=== PATIENT | male | born 1975 | race Caucasian/White ===

== ENCOUNTER → 2020-10-01 01:52 | Outpatient (CLI) | payer BC, SELFPAY ==
[2020-10-01 20:12] LABS: SARS-CoV-2 RNA PCR Negative
== END ==
PROVIDERS: PCP Family Medicine; Visit Provider Internal Medicine Cardiovascular Disease
DX: Z01.812 Encounter for preprocedural laboratory examination (principal); Z20.822 Contact with and (suspected) exposure to COVID-19
CPT/HCPCS: C9803; U0003; U0005

== ENCOUNTER 2020-10-04 01:30 | Day surgery (SDC) | payer BC, SELFPAY ==
[2020-10-03 16:21] VITALS: BMI 55.9
[2020-10-04] VITALS (14 sets, daily range): BP systolic 112–170; BP diastolic 49–82; PULSE 56–68; RESP 12–19; TEMP 36.3–37.1; O2SAT 97–100; BMI 56.9
--- NOTE | 2020-10-04 08:18 | SUR.PREOP ---
Patient arrives ambulatory to [facility]. VS taken, labs obtained, and PIV established using US. Patient denies pain. Girlfriend, Aundrea, at bedside. Consent signed. Patient updated on plan of care and verbalizes understanding. Will continue to monitor.
[2020-10-04 08:21] LABS: Basophils Absolute Auto 0.1 K/mm3 (0.0-0.1); Eosinophils Absolute Auto 0.2 K/mm3 (0-0.3); Eosinophils Percent Auto 2.2 % (0-4.4); Hematocrit 40.3 % (42.0-52.0); Hemoglobin 13.2 g/dL (14.0-18.0); Immature Granulocyte Absolute 0.03 K/mm3 (0.00-0.031); Immature Granulocyte Percent A 0.3 % (0-0.5); Lymphocytes Absolute Auto 1.55 K/mm3 (0.9-3.2); Lymphocytes Percent Auto 16.9 % (18.3-44.2); Mean Corpuscular HGB Conc 32.8 g/dl (32-36); Mean Corpuscular Hemoglobin 28.8 pg (26-34); Mean Platelet Volume 11.1 fl (7.4-10.4); Monocytes Absolute Auto 0.7 K/mm3 (0.1-0.6); Monocytes Percent Auto 7.2 % (2.6-8.5); Neutrophils Absolute Auto 6.6 K/mm3 (1.3-6.7); Neutrophils Percent Auto 72.4 % (45.5-73.1); Platelet Count Result 223 k/mm3 (150-375); Red Blood Count 4.58 M/mm3 (4.6-6.20); White Blood Count 9.2 K/mm3 (4.5-10.0)
[2020-10-04] MEDS: SODIUM CHLORIDE 0.9% IV 500 ML 100 ML IV CONT (08:26)
[2020-10-04 08:32] LABS: INR 0.9; Prothrombin Time 13.2 Seconds (11.1-14.7)
[2020-10-04 08:34] LABS: Anion Gap 5 mmol/L (8-16); Blood Urea Nitrogen 19 mg/dL (9-20); Calcium 8.6 mg/dL (8.4-10.2); Carbon Dioxide 30 mmol/L (22-30); Chloride 103 mmol/L (98-107); Estimated CRCL calculation 142 ml/min; Estimated Glomerular Filt Rate > 60; Glucose 136 mg/dL (75-110); Potassium 4.7 mmol/L (3.4-5.0); Sodium 138 mmol/L (137-145)
--- NOTE | 2020-10-04 10:40 | WPDCARDPROC ---
Cardiac Cath Procedure Note Date of procedure:: 10/04/20 Performing physician:: Mary Bello MD date of service 10/04/2020- Indication:: Abnormal stress test with dyspnea on exertion. Brief clinical history:: This is 45-year-old patient with past medical history of morbid obesity, hypertension, hyperlipidemia, previous history of coronary artery disease with stents in the LAD and the RCA. Patient was evaluated for dyspnea on exertion. There was plan to do bariatric surgery. Underwent stress test that shows lateral ischemia. Patient denies chest pain. I have to mention that the patient's weight has markedly increased since last time I met the patient in 2019. Procedure Procedure performed:: 1-Moderate sedation that started at 9:16 a.m.and ended at 1027using 4mg of Versed and 100mcg fentanyl. The registered nurse was anthony stafford 2-Selective left and right coronary angiogram. 3-Right common femoral arterial angiogram. 4-Deployment of 6 Afghan Angio-Seal. 5- deployment of a drug-eluting stent Xience 3.5 x 23 overlapping distal RCA stent. Deployment under nominal pressure for 25seconds. Overlap segment was post dilated using the stent balloon under 20 atmospheres for 25 seconds. Sedation/Medication given:: Moderate sedation. Access site:: Right common femoral artery. Estimated blood loss:: 10cc Procedure note:: After informed consent patient was brought in to kiln labourer with the was draped and prepped in usual manner. Moderate sedation was given and the right groin was infiltrated using 1% lidocaine. Long Five Afghan sheath was obtained using long cock needle needle and with using Amplatzer stiff wire and the modified Seldinger technique. Selective left coronary angiogram was done using JL4 catheter with the tip of the catheter placed in the left main coronary artery. Selective right coronary angiogram was done using JR4 catheter with the tip of the catheter placed to the right coronary artery. . Right common femoral arterial angiogram was done. after that the a 5 Afghan sheath was exchanged for 6 Afghan sheath over Amplatz stiff wire. Six Afghan guide catheter JR4 was engaged in the RCA. Coronary luge wire 0.014 advanced to distal RCA. Balloon angioplasty to the distal RCA distal to the stent using 3 x 20 balloon under 20 atmospheres for 25 seconds. Then deployed drug-eluting stent Xience 3.5 x 23 overlapping the distal segment of the RCA stent and covering the distal portion of the RCA. The deployment done and the nominal pressure for 25 seconds. The overlap segment was post dilated using the stent balloon under 20 atmospheres for 25 seconds. After that deployment of 6 Afghan Angio-Seal. Findings:: 1- left coronary artery is a large artery that divides into large LAD, large circumflex artery. Left main is Free of disease. 2- left anterior descending artery is a large artery that runs and wraps around the apex. Has patent stents proximally. Minimal irregularities throughout the rest of vessel. 3- leftcircumflex artery is a large artery And has minimal irregularities. Medium-sized OM1 branch with minimal irregularities. 4- right coronary artery is Large artery and dominant and has diffuse irregularities however there is some InStent restenoses about 30% and distal to the stent there is about 80% stenosis. 6- opening arterial pressure was 170/90 and closing pressure was 180/90 7- right femoral artery angiogram shows no significant disease in the right common femoral artery. Conclusion:: 1- Successful stenting of distal RCA using 3.5 x 23 drug-eluting stent. 2- difficulty in the access from the right groin and we had to use a long cock needle and Amplatz stiff wire as well as long sheath. his arteries very deep Assessment and Plan Additional Plan 1- aggressive risk factor modification for CAD. 2- I suggest that after 6 months from now patient proceed for bariatric surgery. Again patient's weight has markedly increased since last ti
--- NOTE | 2020-10-04 10:50 | WPDHPUPDATE1 ---
History and Physical Update Update Date/Time: 10/04/20 08:15 am History and Physical has been reviewed, including an updated exam of the patient. There are NO changes in the patient's condition. Risks, benefits, and alternatives have been discussed and questions answered. Patient agrees to proceed with procedure.
--- NOTE | 2020-10-04 10:51 | PM.IMHP ---
H&P: HPI History of Present Illness Date/Time: 10/04/20 08:15 am Chief Complaint: GILL Narrative: This is 45 year old patient with past medical history of hypertension, hyperlipidemia and morbid obesity. He does have previous history of LAD and RCA stents none last stent in RCA was 2019. Apparently patient was planning to undergo bariatric surgery but was complaining of increasing dyspnea on exertion. He underwent stress test that shows lateral ischemia therefore he is here for cardiac catheterization. Denies chest pain, dizziness or syncope Review of Systems Review of Systems: All systems reviewed & are unremarkable except as noted in HPI and below Constitutional: Constitutional: Denies chills, Denies fatigue, Denies fever(s), Denies headache(s) and Denies snoring Eyes: Eyes: Denies eye discharge and Denies loss of vision ENT: Denies dizziness, Denies headache(s), Denies nasal discharge and Denies sore throat Cardiovascular: Cardiovascular: Reports as per HPI, Denies chest pain, Denies syncope, Denies rapid heart rate, Denies leg edema, Reports dyspnea, Reports dyspnea on exertion, Denies orthopnea and Denies paroxysmal nocturnal dyspnea Respiratory: Respiratory: Denies chest congestion, Denies cough, Denies dyspnea, Reports dyspnea on exertion, Denies snoring and Denies wheezing Gastrointestinal: Gastrointestinal: Denies abdominal pain, Denies diarrhea, Denies nausea and Denies vomiting Genitourinary: Genitourinary: Denies hematuria, Denies dysuria, Denies flank pain and Denies urinary frequency Musculoskeletal: Musculoskeletal: Denies myalgias, Denies arthralgias and Denies joint swelling Neurologic: Denies Abnormal speech present, Denies dizziness, Denies syncope, Denies headache(s), Denies focal weakness and Denies loss of vision Psychiatric: Psychiatric: Denies anxiety and Denies depression Endocrine: Endocrine: Denies cold intolerance, Denies fatigue and Denies heat intolerance Hematologic/Lymphatic: Hematologic/Lymphatic: Denies easy bleeding and Denies easy bruising Allergic/Immunologic: Allergic/Immunologic: Denies urticaria and Denies wheezing PMFSH Past Medical History Medical History [place] (myocardial infarction) Surgical History Surgical History Post PTCA Family History Family History Father Hypertension Family history of diabetes mellitus in first degree relative Family history of coronary artery disease Social History Social History Smoking status: Never smoker Second hand tobacco smoke exposure: No Alcohol intake: never Alcohol use details: Occasional use Substance use: never Substance use type: does not use Living arrangements: with family Gender identity (if verbalized by the patient): Male Spiritual care concerns: No Meds Home Medications and Allergies Home Medications Medication Instructions Recorded Confirmed Type aliskiren 300 1 tablet PO DAILY 06/23/19 10/04/20 History mg-hydrochlorothiazide 25 mg tablet amlodipine 10 mg tablet 10 mg PO DAILY 06/23/19 10/04/20 History aspirin 81 mg tablet,delayed 81 mg PO DAILY 06/23/19 10/04/20 History release atorvastatin 40 mg tablet 40 mg PO DAILY 06/23/19 10/04/20 History clonidine HCl 0.1 mg tablet 0.2 mg PO BID tablet 06/23/19 10/04/20 History ezetimibe 10 mg tablet 10 mg PO DAILY 06/23/19 10/04/20 History nebivolol 10 mg tablet 10 mg PO DAILY 06/23/19 10/04/20 History sertraline 50 mg tablet 50 mg PO DAILY #90 tablet 08/10/20 10/04/20 Rx Allergies Allergy/AdvReac Type Severity Reaction Status Date / Time No Known Allergies Allergy Unverified 10/04/20 07:52 Vital Signs Vital Signs - 24 hr 10/04/20 08:00 Temperature 36.3 C L Pulse Rate 60 Respiratory Rate 12 Blood Pressure 17
--- NOTE | 2020-10-04 10:59 | ECG_ITS ---
Measurements Intervals [place] Rate: 64 P: 50 LA: 204 QRS: 18 QRSD: 112 T: 57 QT: 400 QTc: 414 Interpretive Statements SINUS RHYTHM MINIMAL Q WAVES- INF/HIGH LAT LEADS BORDERLINE ECG Electronically Signed On 10-04-2020 11:33:09 CDT by Albert Hawk D.O.
[2020-10-04] MEDS: SODIUM CHLORIDE 0.9% IV 1,000 ML 125 ML IV CONT (11:00)
--- NOTE | 2020-10-04 13:14 | SUR.PHASEII ---
Patient moved to extended recovery see PCS for continued documentation.
[2020-10-04] MEDS: cloNIDine HCL 0.2 MG TABLET PO (17:40)
[2020-10-04] MEDS: lisinopriL 20 MG TABLET 40 MG PO (20:34)
[2020-10-04] MEDS: TICAGRELOR 90 MG TABLET PO (20:35)
[2020-10-05] VITALS (8 sets, daily range): BP systolic 139–155; BP diastolic 80–83; PULSE 57–71; RESP 16–18; TEMP 36.1–36.4; O2SAT 97–99
[2020-10-05 07:52] LABS: Activated Clotting Time 279 SEC (74-137)
[2020-10-05] MEDS: ALISKIREN 150 MG TABLET 300 MG PO (10:57)
[2020-10-05] MEDS: hydroCHLOROthiazide 25 MG TABLET PO (10:57)
[2020-10-05] MEDS: amLODIPine BESYLATE 5 MG TABLET 10 MG PO (10:58)
[2020-10-05] MEDS: ASPIRIN 81 MG ENTERIC TABLET PO (10:58)
[2020-10-05] MEDS: cloNIDine HCL 0.2 MG TABLET PO (10:59)
[2020-10-05] MEDS: ATORVASTATIN 40 MG TABLET PO (10:59)
[2020-10-05] MEDS: EZETIMIBE 10 MG TABLET PO (10:59)
[2020-10-05] MEDS: SERTRALINE HCL 50 MG TABLET PO (11:00)
[2020-10-05] MEDS: NEBIVOLOL HCL 5 MG TABLET 10 MG PO (11:00)
[2020-10-05] MEDS: TICAGRELOR 90 MG TABLET PO (11:01)
--- NOTE | 2020-10-05 11:02 | PC.NURSE ---
DR. ROCA HERE TO BEDSIDE TO SEE PT.
== END 2020-10-05 13:30 | disposition home or self-care (01) ==
LOC: ANHCATHLAB 07:36 → ANHCPC 13:28
PROVIDERS: PCP Family Medicine; Visit Provider Internal Medicine Cardiovascular Disease
PROC: 4A023N7 Measurement of Cardiac Sampling and Pressure, Left Heart, Percutaneous Approach (ICD-10-PCS; CPT 93452; principal; 2020-10-04 09:00)
DX: I25.10 Atherosclerotic heart disease of native coronary artery without angina pectoris (principal); T82.855A Stenosis of coronary artery stent, initial encounter; Y83.8 Other surgical procedures as the cause of abnormal reaction of the patient, or of later complication, without mention of misadventure at the time of the procedure; R94.39 Abnormal result of other cardiovascular function study; I11.9 Hypertensive heart disease without heart failure; R06.00 Dyspnea, unspecified; E78.5 Hyperlipidemia, unspecified; I25.2 Old myocardial infarction; Z79.82 Long term (current) use of aspirin; Z95.5 Presence of coronary angioplasty implant and graft; E66.01 Morbid (severe) obesity due to excess calories; Z68.43 Body mass index [BMI] 50.0-59.9, adult
CPT/HCPCS: 36415; 80048; 85025; 85610; 93005; 93458; A9270; C1725; C1760; C1769; C1874; C1887; C1894; C9600; G0269; J0360; J0583; J1644; J2250; J3010; J7030; J7040